=== PATIENT | female | born 1950 | race Native Hawaiian/Other Pacific Islander ===

== ENCOUNTER 2017-02-26 06:57 | Day surgery (SDC) | payer OTHER, BC ==
[2017-02-26 07:15] VITALS: BMI 21.9
[2017-02-26] MEDS ORDERED: Lidocaine Hydrochloride 5 ML INJ ONE (08:00)
[2017-02-26] MEDS ORDERED: Propofol 10 mg/ml Inj (20 ML) ONE (08:00)
[2017-02-26] MEDS ORDERED: Lactated Ringer's 1,000 ML IV ONE (08:30)
--- NOTE | 2017-02-26 09:01 | CP.SDSHP ---
Same Day Surgery H & P - History Proposed Procedure: Screening colonoscopy Pre-Op Diagnosis: Screening for colon cancer - Previous Medical/Surgical History Misc: Other Comments: Arthritis Previous Surgical History: Tubal ligation, appendectomy - Allergies Allergies: Allergies No Known Allergies Allergy (Unverified 10/14/12 12:47) - Current Medications Current Medications: See reconciliation sheet - Physical Exam General Appearance: WD WN female in NAD Vital Signs: Vital Signs 02/26/17 07:24 Temperature 97.1 F L Pulse Rate 80 Respiratory 20 Rate Blood Pressure 140/78 O2 Sat by Pulse 98 Oximetry Mental Status: Alert & Oriented x3 Neuro: WNL Heart: WNL Lungs: WNL GI: WNL - {Optional Preform as Required} Abdomen: WNL - Impression Impression: screening for colon cancer Pt. Evaluated Today:Candidate for Anesthesia & Procedure: Yes - Date & Time Date: 02/26/17 Time: 08:30 Short Stay Discharge - Short Stay Discharge Admitting Diagnosis/Reason for Visit: SCREENING Disposition: HOME/ ROUTINE
[2017-02-26 09:13] VITALS: TEMP 96.9
[2017-02-26 10:10] VITALS: BP 113/60; PULSE 67; RESP 14; O2SAT 99
== END 2017-02-26 10:00 | disposition home or self-care (01) ==
LOC: C.ENDO 06:57
PROVIDERS: ATTEND Internal Medicine Gastroenterology
DX: Z12.11 Encounter for screening for malignant neoplasm of colon (principal); K57.30 Diverticulosis of large intestine without perforation or abscess without bleeding; K64.0 First degree hemorrhoids
CPT/HCPCS: 45378; J2704; J7120